=== PATIENT | male | born 1930 | race Caucasian/White ===

== ENCOUNTER 2017-03-12 12:41 | Observation (INO) | payer MEDICARE, OTHER ==
[~2017-03-12] VITALS: Ht 172.7 cm; Wt 68.7 kg
[~2017-03-12 12:41] MED LIST: ALTA1.256 PO; ASPI81 PO; LIPI20TA PO; TERA2CAP3 PO
[2017-03-12 12:47] VITALS: BP 130/64; PULSE 102; RESP 16; TEMP 98.6; O2SAT 94
[2017-03-12] MEDS ORDERED: ATOR20TA15 PO (13:20)
[2017-03-12] MEDS ORDERED: TYLETAB34 PO (13:20)
[2017-03-12] MEDS ORDERED: TERA2CAP3 PO (13:20)
[2017-03-12] MEDS ORDERED: AMLO2.5T PO (13:20)
--- NOTE | 2017-03-12 13:40 | PD ---
HPI Chief Complaint: Pain: Acute or Chronic Time Seen by Provider: 13:27 Travel History International Travel<30 days: No Contact w/Intl Traveler<30days: No Traveled to known affect area: No History of Present Illness HPI 86yo M with PMH of CKD, HTN, BPH presents to the ED with c/o sob and left rib pain since last night. Pt had trip and fell 6 days ago and had hit his right ribs and had 2 rib fractures seen on xray by [facility] 2 days ago. Pt had taken tylenol with codeine with helped with pain. However, he started having left rib pain with sob while getting up from sitting position yesterday. Denies any sob now. Denies any chest pain, fever, n/v, abdominal pain, focal weakness or numbness. Pt has been acting like himself and denies any head trauma. PFSH Past Medical History Heart Rhythm Problems: Yes (EXTRA BEAT) Cancer: No High Cholesterol: Yes Diminished Hearing: No Endocrine: No GERD: Yes Genitourinary: Yes (NEW RETENTION, SLOW STREAM) Headaches: Yes Hypertension: Yes Immune Disorder: No Implanted Vascular Access Dvce: No Musculoskeletal: No Neurologic: Yes Psychiatric: No Reproductive: No Respiratory: No Past Surgical History Abdominal Surgery: Yes (APPENDECTOMY) Appendectomy: Yes Joint Replacement: No Oral Surgery: Yes (TONSILLECTOMY) Thoracic Surgery: Yes ("1934,tube in my lung to drain pneumonia") Tonsillectomy: Yes Other Surgery: Yes ("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") Social History Alcohol Use: No Tobacco Use: No Substance Use: No Allergies-Medications (Allergen,Severity, Reaction): Coded Allergies: No Known Allergies (Verified Allergy, Unknown, 03/12/17) Reported Meds & Prescriptions Reported Meds & Active Scripts Active Reported Terazosin (Terazosin HCl) 2 Mg Cap 2 Mg PO HS Atorvastatin (Atorvastatin Calcium) 20 Mg Tab 20 Mg PO HS Amlodipine (Amlodipine Besylate) 2.5 Mg Tab 2.5 Mg PO DAILY Tylenol-Codeine #3 (Acetaminophen-Codeine) 300-30 mg Tab 1 Tab PO Q8HR PRN Review of Systems Except as stated in HPI: all other systems reviewed are Neg Physical Exam Narrative GENERAL: 86yo M not in distress. SKIN: Focused skin assessment warm/dry. HEAD: Atraumatic. Normocephalic. EYES: Pupils equal and round. No scleral icterus. No injection or drainage. CARDIOVASCULAR: Regular rate and rhythm. No murmur appreciated. RESPIRATORY: No accessory muscle use. Clear to auscultation. Breath sounds equal bilaterally. GASTROINTESTINAL: Abdomen soft, non-tender, nondistended. MUSCULOSKELETAL: Mild ttp right posterior ribs and left posterior ribs. No ecchymoses or crepitus. NEUROLOGICAL: Awake and alert. No obvious cranial nerve deficits. Motor grossly within normal limits. Normal speech. PSYCHIATRIC: Appropriate mood and affect; insight and judgment normal. Data Data Last Documented VS Vital Signs Date Time Temp Pulse Resp B/P (MAP) Pulse Ox O2 Delivery O2 Flow Rate FiO2 03/12/17 12:47 98.6 102 16 130/64 (86) 94 Orders Orders Ribs, Uni (W/Exp Cxr-Min 3vw) (03/12/17 ) Electrocardiogram (03/12/17 ) Complete Blood Count With Diff (03/12/17 13:36) Basic Metabolic Panel (Bmp) (03/12/17 13:36) Troponin I (03/12/17 13:36) Magnesium (Mg) (03/12/17 15:01) Lidocaine 5% Patch.12 Hr (Lidoderm 5% Pa (03/12/17 15:30) Acetamin-Hydrocod 325-5 Mg ([place] 5-325 (03/12/17 15:30) Resp Incentive Spirometry (03/12/17 ) Admit Order (Ed Use Only) (03/12/17 15:25) Labs Laboratory Tests Test 03/12/17 14:17 White Blood Count 8.9 TH/MM3 Red Blood Count 4.07 MIL/MM3 Hemoglobin 11.6 GM/DL Hematocrit 36.0 % Mean Corpuscular Volume 88.5 FL Mean Corpuscular Hemoglobin 28.7 PG Mean Corpuscular Hemoglobin Concent 32.4 % Red Cell Distribution Width 13.0 % Platelet Count 191 TH/MM3 Mean Platelet Volume 9.6 FL Neutrophils (%) (Auto) 74.1 % Lymphocytes (%) (Auto) 13.0 % Monocytes (%) (Auto) 11.5 % Eosinophils (%) (Auto) 0.7 % Basophils (%) (Auto) 0.7 % Neutrophils # (Auto) 6.5 TH/MM3 Lymphocytes # (Auto) 1.2 TH/MM3 Monocytes # (Auto) 1.0 TH/MM3 Eosinophils # (Auto) 0.1 TH/MM3 Basophils # (Auto) 0.1 TH/MM3 CBC Comment DIFF FINAL Differential Comment Blood Urea Nitrogen 25 MG/DL Creatinine 1.20 MG/DL Random Glucose 130 MG/DL Calcium Level 8.4 MG/DL Sodium Level 136 MEQ/L Potassium Level 4.5 MEQ/L Chloride Level 103 MEQ/L Carbon Dioxide Level 24.9 MEQ/L Anion Gap 8 MEQ/L Estimat Glomerular Filtration Rate 58 ML/MIN Magnesium Level 2.1 MG/DL Troponin I 0.25 NG/ML MDM Medical Decision Making Medical Screen Exam Complete: Yes Emergency Medical Condition: Yes Interpretation(s) EKG: NSR 90bpm. +PVCs. Differential Diagnosis Rib fracture vs. pneumothorax vs. pneumonia Narrative Course 86yo M with right rib fracture s/p mechanical fall here complaining of left rib pain as well and some sob yesterday. Denies any sob or chest pain today. Labs reviewed, no leukocytosis. Troponin elevated at 0.25. Pt has no chest pain now , had sob before. Upon review of prior record, pt had similar elevated troponin at 0.29 and 0.28. Pt has CKD. 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 Xray left ribs and CXR showed acute fractures lateral aspect of right eighth, ninth, and 10th rib and probably left lateral seventh, eighth and ninth ribs. Pt said he took tylenol #3 just prior to coming which help with his pain. It is now a 3 out of 10. Will give lidoderm patch and 1 lortab. Lungs are equal bilaterally. O2 sat 96% on RA. Pt is at risk for developing pneumonia. Ordered incentive spirometer. Discussed with Dr. Arreguin and he came to evaluate the patient. He does not think that pt needs to be admitted as troponin is chronically elevated and pt's rib pain is controlled. The patient's is very upset and does not agree with the plan. I ask Dr. Arreguin to come discuss with the patient himself and after discussing, accepted pt for observation for pain control of multiple rib fractures. Diagnosis Primary Impression: Multiple fractures of ribs of both sides Qualified Codes: S22.43XA - Multiple fractures of ribs, bilateral, initial encounter for closed fracture Admitting Information Admitting Physician Requests: Observation Rita Angela DO Mar 12, 2017 13:40
--- NOTE | 2017-03-12 14:19 | RADRPT ---
EXAM DATE/TIME: 03/12/2017 13:53 [place] COMPARISON: No previous studies available for comparison. INDICATIONS : Fall, left side rib pain mostly, some right side rib pain. Short of breath. MEDICAL HISTORY : Hypertension. SURGICAL HISTORY : None. ENCOUNTER: Initial ACUITY: 4 - 6 days PAIN SCORE: 5/10 LOCATION: Left ribs FINDINGS: There are acute fractures involving the lateral aspects of the right eighth, ninth, and 10th ribs. Th ere are also probable acute fractures of the lateral aspect of the left seventh, eighth, and ninth ri bs. Degenerative changes and scoliosis of the thoracolumbar spine are noted. CONCLUSION: Acute fractures involving the lateral aspect of the right eighth, ninth, and 10th ribs and probably t he left lateral seventh, eighth, and ninth ribs. Degenerative changes and scoliosis of the thoracolum bar spine. Cole Bañuelos MD on March 12, 2017 at 14:13 Board Certified Radiologist. This report was verified electronically.
[2017-03-12 14:32] LABS: POTASSIUM 4.5 MEQ/L (3.5-5.1)
[2017-03-12 14:35] LABS: BICARBONATE 24.9 MEQ/L (21.0-32.0)
[2017-03-12 15:04] LABS: AUTOMATED NEUTROPHIL # 6.5 TH/MM3 (1.8-7.7); BASOPHIL # 0.1 TH/MM3 (0-0.2); BASOPHIL % 0.7 % (0.0-2.0); EOSINOPHIL # 0.1 TH/MM3 (0-0.4); EOSINOPHIL % 0.7 % (0.0-4.0); HEMO FLAGS DIFF FINAL; LYMPHOCYTE # 1.2 TH/MM3 (1.0-4.8); MEAN CELL VOLUME 88.5 FL (80.0-100.0); MEAN CORPUSCULAR HEMOGLOBIN 28.7 PG (27.0-34.0); MEAN CORPUSCULAR HGB CONC 32.4 % (32.0-36.0); MONO % 11.5 % (0.0-8.0); NEUT % 74.1 % (16.0-70.0); PLATELET COUNT 191 TH/MM3 (150-450); RED BLOOD COUNT 4.07 MIL/MM3 (4.50-5.90); WHITE BLOOD COUNT 8.9 TH/MM3 (4.0-11.0)
[2017-03-12] MEDS ORDERED: ACETAMINOPHEN/HYDROcodone 325 MG/5 MG TAB PO ONE (15:30)
[2017-03-12] MEDS ORDERED: LIDOCAINE HCL 5% PATCH T-DERMAL ONE (15:30)
[2017-03-12] MEDS ORDERED: BISACODYL 10 MG SUPP RECTAL PRN (17:15)
[2017-03-12] MEDS ORDERED: TEMAZEPAM 15 MG CAP PO PRN (17:15)
[2017-03-12] MEDS ORDERED: ACETAMINOPHEN/HYDROcodone 325 MG/5 MG TAB PO PRN (17:15)
[2017-03-12] MEDS ORDERED: SODIUM CHLORIDE 0.9% FLUSH 10 ML FLUSH IV FLUSH PRN (17:15)
[2017-03-12] MEDS ORDERED: NALOXONE HCL 0.4 MG/ML AMP IV PUSH PRN (17:15)
[2017-03-12] MEDS ORDERED: MAGNESIUM HYDROXIDE SUSP 30 ML CUP PO PRN (17:15)
[2017-03-12] MEDS ORDERED: SENNOSIDES 8.6 MG TAB PO PRN (17:15)
[2017-03-12] MEDS ORDERED: ONDANSETRON HCL 4 MG/2 ML VIAL IVP PRN (17:15)
[2017-03-12] MEDS ORDERED: LACTULOSE SYRUP 20 GM/30 ML CUP PO PRN (17:15)
[2017-03-12 17:24] VITALS: BP 121/75; PULSE 99; RESP 16; O2SAT 97
[2017-03-12] MEDS ORDERED: PILL SPLITTER OTHER PRN (17:30)
--- NOTE | 2017-03-12 17:31 | HHI.HP ---
[facility] Service [facility] Primary Care Physician Savage Perdue MD Admission Diagnosis Multiple rib fractures, elevated troponin Diagnoses: Chief Complaint: Rib pain Travel History International Travel<30 Days: No Contact w/Intl Traveler <30 Da: No Traveled to Known Affected Are: No History of Present Illness 86-year-old male with a medical history significant for hypertension, BPH, and chronic kidney disease who presented to the emergency room complaining of left rib pain. Apparently the patient tripped and fell about 6 days ago. He was seen at an urgent care and was found to have rib fractures. He was given Tylenol with codeine which has been helping with his pain. He reports he did not sleep well last night secondary to the pain which prompted the emergency room visit. He has since received Meldrim in the emergency room and is currently very comfortable. I discussed the case with the emergency room physician. He is found to have a slightly elevated troponin which is chronic based on extensive review of his records. His is not comfortable with taking him home because he wants to make sure his pain is controlled. Patient denies any shortness of breath. Review of Systems Constitutional: DENIES: Fever, Chills Respiratory: DENIES: Cough, Wheezing, Shortness of breath Stan rib pain. Past Family Social History Past Medical History hypertension, BPH, chronic kidney disease Hyperlipidemia Past Surgical History Appendectomy Heart catheterization in 2014 Reported Medications Reported Meds & Active Scripts Active Reported Terazosin (Terazosin HCl) 2 Mg Cap 2 Mg PO HS Atorvastatin (Atorvastatin Calcium) 20 Mg Tab 20 Mg PO HS Amlodipine (Amlodipine Besylate) 2.5 Mg Tab 2.5 Mg PO DAILY Tylenol-Codeine #3 (Acetaminophen-Codeine) 300-30 mg Tab 1 Tab PO Q8HR PRN Allergies: Coded Allergies: No Known Allergies (Verified Adverse Reaction, Unknown, 03/12/17) Family History Reviewed and found to be noncontributory to the current presentation. Social History No tobacco, or alcohol. Physical Exam Vital Signs Vital Signs Date Time Temp Pulse Resp B/P (MAP) Pulse Ox O2 Delivery O2 Flow Rate FiO2 03/12/17 12:47 98.6 102 16 130/64 (86) 94 Physical Exam GENERAL: This is a well-nourished, well-developed patient, in no apparent distress. SKIN: No rashes, ecchymoses or lesions. Cool and dry. HEAD: Atraumatic. Normocephalic. No temporal or scalp tenderness. EYES: Pupils equal round and reactive. Extraocular motions intact. No scleral icterus. No injection or drainage. ENT: Nose without bleeding, purulent drainage or septal hematoma. Throat without erythema, tonsillar hypertrophy or exudate. Uvula midline. Airway patent. NECK: Trachea midline. No JVD or lymphadenopathy. Supple, nontender, no meningeal signs. CARDIOVASCULAR: Regular rate and rhythm without murmurs, gallops, or rubs. RESPIRATORY: Clear to auscultation. Breath sounds equal bilaterally. No wheezes , rales, or rhonchi. GASTROINTESTINAL: Abdomen soft, non-tender, nondistended. No hepato-splenomegaly , or palpable masses. No guarding. MUSCULOSKELETAL: Mild tenderness to palpation along bilateral lower ribs. NEUROLOGICAL: Awake and alert. Cranial nerves II through XII intact. Motor and sensory grossly within normal limits. Five out of 5 muscle strength in all muscle groups. Normal speech. Laboratory Laboratory Tests Test 03/12/17 14:17 White Blood Count 8.9 Red Blood Count 4.07 Hemoglobin 11.6 Hematocrit 36.0 Mean Corpuscular Volume 88.5 Mean Corpuscular Hemoglobin 28.7 Mean Corpuscular Hemoglobin Concent 32.4 Red Cell Distribution Width 13.0 Platelet Count 191 Mean Platelet Volume 9.6 Neutrophils (%) (Auto) 74.1 Lymphocytes (%) (Auto) 13.0 Monocytes (%) (Auto) 11.5 Eosinophils (%) (Auto) 0.7 Basophils (%) (Auto) 0.7 Neutrophils # (Auto) 6.5 Lymphocytes # (Auto) 1.2 Monocytes # (Auto) 1.0 Eosinophils # (Auto) 0.1 Basophils # (Auto) 0.1 CBC Comment DIFF FINAL Differential Comment Blood Urea Nitrogen 25 Creatinine 1.20 Random Glucose 130 Calcium Level 8.4 Sodium Level 136 Potassium Level 4.5 Chloride Level 103 Carbon Dioxide Level 24.9 Anion Gap 8 Estimat Glomerular Filtration Rate 58 Magnesium Level 2.1 Troponin I 0.25 Result Diagram: 03/12/17 1417 03/12/17 1417 Imaging Last Impressions Ribs X-Ray 03/12/17 0000 Signed Impressions: Service Date/Time: February 13:53 - CONCLUSION: Acute fractures involving the lateral aspect of the right eighth, ninth, and 10th ribs and probably the left lateral seventh, eighth, and ninth ribs. Degenerative changes and scoliosis of the thoracolumbar spine. MD Myranda Echols VTE Risk Assessment Caprini VTE Risk Assessment: Mod/High Risk (score >= 2) Caprini Risk Assessment Model Point Value = 1 Point Value = 2 Point Value = 3 Point Value = 5 Age 41-60 Minor surgery BMI > 25 kg/m2 Swollen legs Varicose veins or History of unexplained or recurrent spontaneous Oral contraceptives or hormone replacement Sepsis (< 1 month) Serious lung disease, including pneumonia (< 1 month) Abnormal pulmonary function Acute myocardial infarction Congestive heart failure (< 1 month) History of inflammatory bowel disease Medical patient at bed rest Age 61-74 Arthroscopic surgery Major open surgery (> 45 min) Laparoscopic surgery (> 45 min) Malignancy Confined to bed (> 72 hours) Immobilizing plaster cast Central venous access Age >= 75 History of VTE Family history of VTE Factor V Leiden Prothrombin [id number] Lupus anticoagulant Anticardiolipin antibodies Elevated serum homocysteine Heparin-induced thrombocytopenia Other congenital or acquired thrombophilia Stroke (< 1 month) Elective arthroplasty Hip, pelvis, or leg fracture Acute spinal cord injury (< 1 month) Prophylaxis Regimen Total Risk Factor Score Risk Level Prophylaxis Regimen 0-1 Low Early ambulation 2 Moderate Order ONE of the following: *Sequential Compression Device (SCD) *Heparin 5000 units SQ BID 3-4 Higher Order ONE of the following medications: *Heparin 5000 units SQ TID *Enoxaparin/Lovenox 40 mg SQ daily (WT < 150 kg, CrCl > 30 mL/min) *Enoxaparin/Lovenox 30 mg SQ daily (WT < 150 kg, CrCl > 10-29 mL/min) *Enoxaparin/Lovenox 30 mg SQ BID (WT < 150 kg, CrCl > 30 mL/min) AND/OR *Sequential Compression Device (SCD) 5 or more Highest Order ONE of the following medications: *Heparin 5000 units SQ TID (Preferred with Epidurals) *Enoxaparin/Lovenox 40 mg SQ daily (WT < 150 kg, CrCl > 30 mL/min) *Enoxaparin/Lovenox 30 mg SQ daily (WT < 150 kg, CrCl > 10-29 mL/min) *Enoxaparin/Lovenox 30 mg SQ BID (WT < 150 kg, CrCl > 30 mL/min) AND *Sequential Compression Device (SCD) Assessment and Plan Problem List: (1) Hypertension ICD Code: I10 - Essential (primary) hypertension (2) Hyperlipidemia ICD Code: E78.5 - Hyperlipidemia, unspecified (3) BPH (benign prostatic hyperplasia) ICD Code: N40.0 - Benign prostatic hyperplasia without lower urinary tract symptoms (4) Multiple fractures of ribs of both sides ICD Code: S22.43XA - Multiple fractures of ribs, bilateral, initial encounter for closed fracture Status: Acute (5) Elevated troponin ICD Code: R74.8 - Abnormal levels of other serum enzymes Status: Acute Assessment and Plan 86-year-old male with multiple rib fractures about 6 days ago. Previously seen at an urgent care and has been managed with Tylenol No. 3. His pain is not well controlled. He has been given Meldrim in the emergency room and is currently comfortable. Multiple rib fractures secondary to mechanical fall: Pain not controlled with Tylenol No. 3. - Continue Meldrim. - Encourage incentive spirometer. - Discussed plan and expected course extensively with the patient and his . They requested to be admitted for observation instead of going home to ensure his pain is controlled. Elevated troponins: The patient's troponin is chronically elevated and essentially unchanged. Last heart catheterization was 2 years ago. He does not have any cardiac symptoms at this point. He does have CKD which likely contribute to the slight elevation of troponin. Hypertension: Continue amlodipine BPH: Continue Terazosin Plan to discharge the patient tomorrow on Meldrim for pain control. Discussed with the patient and his the importance of staying active and using an incentive spirometer to avoid atelectasis and possible pneumonia. Discussed Condition With Dr. Angela Problem Qualifiers (1) Multiple fractures of ribs of both sides: Qualified Codes: S22.43XA - Multiple fractures of ribs, bilateral, initial encounter for closed fracture Dakota Arreguin MD Mar 12, 2017 17:31
[2017-03-12 18:30] VITALS: BP 121/61; PULSE 70; RESP 20; TEMP 98.5; O2SAT 96
[2017-03-12 20:00] VITALS: BP 107/62; PULSE 85; RESP 18; TEMP 97.8; O2SAT 94
[2017-03-12] MEDS ORDERED: ATORVASTATIN 20 MG TAB PO SCH (21:00)
[2017-03-12] MEDS ORDERED: TERAZOSIN HCL 1 MG CAP PO SCH (21:00)
[2017-03-12] MEDS: SODIUM CHLORIDE 0.9% FLUSH 10 ML FLUSH IV FLUSH SCH (21:19)
[2017-03-13] VITALS: BP 121/65; PULSE 81; RESP 18; TEMP 97.8; O2SAT 96
[2017-03-13 08:36] VITALS: BP 117/63; PULSE 87; RESP 16; TEMP 99.2; O2SAT 94
[2017-03-13] MEDS: SODIUM CHLORIDE 0.9% FLUSH 10 ML FLUSH IV FLUSH SCH (09:00)
[2017-03-13] MEDS ORDERED: amLODIPine BESYLATE 5 MG TAB PO SCH (09:00)
[2017-03-13] MEDS ORDERED: HYDR-3516 PO (10:04)
--- NOTE | 2017-03-13 10:04 | HHI.DCPOC ---
Discharge Care Plan Diagnosis: (1) Multiple fractures of ribs of both sides (2) Hyperlipidemia (3) Hypertension (4) BPH (benign prostatic hyperplasia) (5) Elevated troponin Goals to Promote Your Health * To prevent worsening of your condition and complications * To maintain your health at the optimal level Directions to Meet Your Goals Take your medications as prescribed Follow your dietary instruction Follow activity as directed Keep your appointments as scheduled Take your immunizations and boosters as scheduled If your symptoms worsen call your PCP, if no PCP go to Urgent Care Center or Emergency Room Smoking is Dangerous to Your Health. Avoid second hand smoke Call the 24-hour hour crisis hotline for domestic abuse at Dakota Arreguin MD Mar 13, 2017 10:04
--- NOTE | 2017-03-13 10:08 | HHI.PR ---
Subjective Remarks Patient reports he is feeling much better. He slept better last night. Pain is well controlled. Objective Vitals Vital Signs Date Time Temp Pulse Resp B/P (MAP) Pulse Ox O2 Delivery O2 Flow Rate FiO2 03/13/17 08:36 99.2 87 16 117/63 (81) 94 03/13/17 00:00 97.8 81 18 121/65 (83) 96 03/12/17 20:00 97.8 85 18 107/62 (77) 94 03/12/17 18:30 98.5 70 20 121/61 (81) 96 03/12/17 17:24 99 16 121/75 (90) 97 03/12/17 12:47 98.6 102 16 130/64 (86) 94 I/O 03/12/17 03/12/17 03/12/17 03/13/17 03/13/17 03/13/17 07:00 15:00 23:00 07:00 15:00 23:00 Intake Total 240 ml Balance 240 ml Intake Oral 240 ml # Voids 1 3 # Bowel Movements 1 Result Diagram: 03/12/17 1417 03/12/17 1417 Objective Remarks GENERAL: This is a well-nourished, well-developed patient, in no apparent distress. CARDIOVASCULAR: Normal rate and regular rhythm without murmurs, gallops, or rubs. RESPIRATORY: Good respiratory efforts. Breath sounds equal and clear to auscultation bilaterally. GASTROINTESTINAL: Abdomen soft, non-tender, non-distended. Normal active bowel sounds MUSCULOSKELETAL: Mild tenderness to palpation along bilateral lower ribs. NEURO: Alert & Oriented x4 to person, place, time, situation. Moves all ext x4 PSYCH: Appropriate mood and affect. A/P Problem List: (1) Hypertension ICD Code: I10 - Essential (primary) hypertension (2) Hyperlipidemia ICD Code: E78.5 - Hyperlipidemia, unspecified (3) BPH (benign prostatic hyperplasia) ICD Code: N40.0 - Benign prostatic hyperplasia without lower urinary tract symptoms (4) Multiple fractures of ribs of both sides ICD Code: S22.43XA - Multiple fractures of ribs, bilateral, initial encounter for closed fracture Status: Acute (5) Elevated troponin ICD Code: R74.8 - Abnormal levels of other serum enzymes Status: Acute Assessment and Plan 86-year-old male with multiple rib fractures about 6 days ago. Previously seen at an urgent care and has been managed with Tylenol No. 3. His pain is not well controlled. He has been given [place] in the emergency room which controlled his pain. Patient was admitted for observation overnight. His pain remained controlled on [place]. He is discharged home on [place] and encouraged to use incentive spirometer. Elevated troponins: The patient's troponin is chronically elevated and essentially unchanged. Last heart catheterization was 2 years ago. He does not have any cardiac symptoms at this point. He does have CKD which likely contribute to the slight elevation of troponin. Hypertension: Continue amlodipine BPH: Continue Terazosin Discharged home in good condition Activity: Regular as tolerated Diet: Heart healthy Meds: Per med rec Follow-up: With PCP Problem Qualifiers (1) Multiple fractures of ribs of both sides: Qualified Codes: S22.43XA - Multiple fractures of ribs, bilateral, initial encounter for closed fracture Dakota Arreguin MD Mar 13, 2017 10:08
--- NOTE | 2017-03-13 15:15 | EKG ---
Date Performed: 03/12/2017 Time Performed: 14:09:30 PTAGE: 86 years EKG: Sinus rhythm WITH FREQUENT VENTRICULAR PREMATURE COMPLEXES INDETERMINATE AXIS RIGHT BUNDLE BRANCH BLOCK ABNORMAL ECG Compared to PREVIOUS TRACING , the PVCs are new. PREVIOUS TRACIN08/31/2014 06.12 DOCTOR: Taran Perez Interpretating Date/Time 03/13/2017 15:14:28
== END 2017-03-13 11:28 | disposition home or self-care (01) ==
LOC: PHED 12:41 → PHEDA 15:26 → PH3A 17:50
PROVIDERS: ADMIT Family Medicine; ATTEND Family Medicine
DX: S22.43XA Multiple fractures of ribs, bilateral, initial encounter for closed fracture (principal); W01.0XXA Fall on same level from slipping, tripping and stumbling without subsequent striking against object, initial encounter; R07.81 Pleurodynia; R06.02 Shortness of breath; I12.9 Hypertensive chronic kidney disease with stage 1 through stage 4 chronic kidney disease, or unspecified chronic kidney disease; N18.9 Chronic kidney disease, unspecified; K21.9 Gastro-esophageal reflux disease without esophagitis; N40.1 Benign prostatic hyperplasia with lower urinary tract symptoms; R33.9 Retention of urine, unspecified; R74.8 Abnormal levels of other serum enzymes; E78.5 Hyperlipidemia, unspecified
CPT/HCPCS: 71101; 80048; 83735; 84484; 85025; 93005; 94150; 99285; G0378